=== PATIENT | female | born 2000 | race Caucasian/White ===

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

== ENCOUNTER 2018-12-19 13:47 | Emergency (ER) | payer BC, OTHER ==
--- NOTE | 2018-12-19 14:39 | ED ---
Lower Extremity Injury HPI - General Chief Complaint: Extremity Injury, Lower Stated Complaint: Knee & ankle injury Time Seen by Provider: 12/19/18 14:12 Source: patient, family Mode of arrival: wheelchair Limitations: no limitations - History of Present Illness Initial Comments: Patient is a 18-year-old female complaining of knee and foot pain after falling yesterday. Patient states she was walking out of work and her left knee gave out and she fell forward onto her left knee and twisting her right ankle. Patient admits to previous injury of same knee and ankle about a year and a half ago after slipping on some ice. Patient had a walking boot from her previous injury and was wearing that on her right lower extremity upon examination. Patient denies numbness and tingling. Patient denies any other injuries at this time. - Related Data Home Medications Medication Instructions Recorded Confirmed Lo Loestrin Fe 07/24 1 tab PO DAILY 09/25/17 09/25/17 Allergies Allergy/AdvReac Type Severity Reaction Status Date / Time latex AdvReac Unknown Verified 12/19/18 14:04 Review of Systems ROS Statement: Those systems with pertinent positive or pertinent negative responses have been documented in the HPI. ROS Other: All systems not noted in ROS Statement are negative. Past Medical History Past Medical History: No Reported History Additional Past Medical History / Comment(s): RSV History of Any Multi-Drug Resistant Organisms: None Reported Past Surgical History: No Surgical Hx Reported Past Psychological History: ADD/ADHD Smoking Status: Never smoker Past Alcohol Use History: None Reported Past Drug Use History: None Reported General Exam - General Exam Comments Initial Comments: GENERAL: Well-appearing, well-nourished and in no acute distress. HEAD: Atraumatic, normocephalic. EYES: Pupils equal round and reactive to light, extraocular movements intact, sclera anicteric, conjunctiva are normal. ENT: TMs normal, nares patent, oropharynx clear without exudates. Moist mucous membranes. NECK: Normal range of motion, supple without lymphadenopathy or JVD. LUNGS: Breath sounds clear to auscultation bilaterally and equal. No wheezes rales or rhonchi. HEART: Regular rate and rhythm without murmurs, rubs or gallops. ABDOMEN: Soft, nontender, normoactive bowel sounds. No guarding, no rebound. No masses appreciated. : Deferred EXTREMITIES: Left knee is tender to the touch over anterior aspect and over tibial tuberosity. There are 2 abrasions over the left anterior knee as well. Patient is able to lift left knee off the table and has full extension. Patient has pain with flexion and unable to flex past 30. Right foot has edema over the lateral aspect near the base of the fifth metatarsal. There is some bruising along the area as well and panic pain with palpitation. Ankle has normal range of motion although painful. Pulses are normal and intact. NEUROLOGICAL: Cranial nerves II through XII grossly intact. Normal speech, normal gait. PSYCH: Normal mood, normal affect. SKIN: Warm, Dry, normal turgor, no rashes or lesions noted. Limitations: no limitations Course Vital Signs 12/19/18 14:00 Temperature 98.6 F Pulse Rate 87 Respiratory 18 Rate Blood Pressure 138/83 O2 Sat by Pulse 96 Oximetry Medical Decision Making - Medical Decision Making Patient is a 18-year-old female who presents with left knee and right ankle foot pain after falling yesterday leaving work. She states her left knee gave out causing her to fall. Admits to previous injury to same left knee and right ankle approximately a year and a half ago. Left knee x-ray shows no acute fractures or joint effusions. Does show movement of the calcification within the patellar tendon that was on previous exam in 2018. Right foot x-ray shows no acute fractures/pathology. Patient will be discharged home. Disposition Clinical Impression: Contusion of knee, Contusion of foot Disposition: HOME SELF-CARE Condition: Stable Instructions (If sedation given, give patient instructions): Foot Contusion (ED), Knee Pain (ED) Additional Instructions: Please return to the Emergency Department if symptoms worsen or any other concerns. Follow-up with orthopedics/PCP if pain continues after 2 weeks. Is patient prescribed a controlled substance at d/c from ED?: No Referrals: None,Stated [Primary Care Provider] - 1-2 days
--- NOTE | 2018-12-19 15:04 | XR ---
Left knee HISTORY: Pain 3 views of the left knee, comparison to prior exam 07/17/2017 Bone mineralization and alignment are maintained. Joint spaces are stable. There is no evident joint effusion. There is some superior migration of the ossific density seen previously near the insertion of the patellar tendon. IMPRESSION: Interval migration of calcification within the patellar tendon could be due to underlying tendinopathy, consider knee MRI.
--- NOTE | 2018-12-19 15:04 | XR ---
Right foot HISTORY: Pain 3 views of the right foot Bone mineralization, joint spaces and alignment are maintained. No fracture or dislocation. IMPRESSION: Normal right foot.
[2018-12-19 15:48] VITALS: BP 130/78; PULSE 82; RESP 16; TEMP 98.1
== END 2018-12-19 15:47 | disposition home or self-care (01) ==
LOC: EC 13:47
DX: S80.02XA Contusion of left knee, initial encounter (principal); S90.31XA Contusion of right foot, initial encounter; Z79.3 Long term (current) use of hormonal contraceptives; Z91.040 Latex allergy status; W19.XXXA Unspecified fall, initial encounter; Y93.01 Activity, walking, marching and hiking; X50.1XXA Overexertion from prolonged static or awkward postures, initial encounter
CPT/HCPCS: 99283

== ENCOUNTER 2019-12-30 14:36 | Emergency (ER) | payer BC, OTHER ==
[2019-12-30] MEDS ORDERED: SODIUM CHLORIDE 0.9% 1,000 ML IV STA (15:01)
[2019-12-30] MEDS ORDERED: PANTOPRAZOLE 40 MG/10 ML VIAL IVP STA (15:02)
--- NOTE | 2019-12-30 15:03 | ED ---
General Adult HPI - General Chief complaint: Chest Pain Stated complaint: Chest Pain Time Seen by Provider: 12/30/19 14:45 Source: patient, RN notes reviewed, old records reviewed Mode of arrival: ambulatory Limitations: no limitations - History of Present Illness Initial comments: 19 [place] old female presents today for chest pain with taking a deep breath, around sternum. She reports symptoms started at work today. She has a history of GERD induced asthma. She denies cough, fever or chills. Denies history of sick contacts. PAtient denies nausea or vomiting. - Related Data Previous Rx's Medication Instructions Recorded Albuterol Inhaler [Ventolin Hfa 1 puff INHALATION RT-QID #1 puff 12/30/19 Inhaler] methylPREDNISolone Dose Pack 4 mg PO DIRECTED #21 package 12/30/19 [Medrol Dose Pack] Allergies Allergy/AdvReac Type Severity Reaction Status Date / Time latex AdvReac Unknown Verified 12/30/19 16:30 Review of Systems ROS Statement: Those systems with pertinent positive or pertinent negative responses have been documented in the HPI. ROS Other: All systems not noted in ROS Statement are negative. Past Medical History Past Medical History: No Reported History Additional Past Medical History / Comment(s): RSV History of Any Multi-Drug Resistant Organisms: None Reported Past Surgical History: No Surgical Hx Reported Past Psychological History: ADD/ADHD Smoking Status: Never smoker Past Alcohol Use History: None Reported Past Drug Use History: None Reported General Exam - General Exam Comments Initial Comments: 19 year old female, no distress. Limitations: no limitations General appearance: alert, in no apparent distress Head exam: Present: atraumatic, normocephalic, normal inspection Eye exam: Present: normal appearance, PERRL, EOMI. Absent: scleral icterus, conjunctival injection, periorbital swelling ENT exam: Present: normal exam, mucous membranes moist Neck exam: Present: normal inspection. Absent: tenderness, meningismus, l ymphadenopathy Respiratory exam: Present: normal lung sounds bilaterally. Absent: respiratory distress, wheezes, rales, rhonchi, stridor Cardiovascular Exam: Present: regular rate, normal rhythm, normal heart sounds. Absent: systolic murmur, diastolic murmur, rubs, gallop, clicks GI/Abdominal exam: Present: soft, normal bowel sounds. Absent: distended, tenderness, guarding, rebound, rigid Extremities exam: Present: normal inspection, full ROM, normal capillary refill. Absent: tenderness, pedal edema, joint swelling, calf tenderness Back exam: Present: normal inspection Neurological exam: Present: alert, oriented X3, CN II-XII intact Psychiatric exam: Present: normal affect, normal mood Skin exam: Present: warm, dry, intact, normal color. Absent: rash Course Vital Signs 12/30/19 12/30/19 12/30/19 14:40 15:06 15:44 Temperature 98.0 F 98.2 F Pulse Rate 111 H 102 H Respiratory 20 17 18 Rate Blood Pressure 154/97 132/88 O2 Sat by Pulse 98 97 Oximetry 12/30/19 12/30/19 12/30/19 16:06 16:18 16:53 Temperature 98.6 F Pulse Rate 84 88 87 Respiratory 20 Rate Blood Pressure 122/60 O2 Sat by Pulse 98 Oximetry Medical Decision Making - Medical Decision Making 19 year old female with 1 day of shortness of breath and chest pain with inspiration. Labs including D dimer are negative. EKG shows no acute changes, and CXR shows mild cardiomegaly but no acute process. Cardiomegaly is likley due to patient body habitus. PAtient vitals are stable. She does report midl improvement after albuterol. Discussed patient to follow up with PCP but to use inhaler at work. Discussed return parameters. - Lab Data Result diagrams: 12/30/19 15:25 12/30/19 15:25 Lab Results 12/30/19 12/30/19 12/30/19 Range/Units 15:13 15:25 15:25 WBC 9.7 (3.8-10.6) k/uL RBC 4.17 (3.80-5.40) m/uL Hgb 12.3 (11.4-16.0) gm/dL Hct 36.8 (34.0-46.0) % MCV 88.2 (80.0-100.0) fL MCH 29.5 (25.0-35.0) pg MCHC 33.5 (31.0-37.0) g/dL RDW 13.4 (11.5-15.5) % Plt Count 365 (150-450) k/uL Neutrophils % 67 % Lymphocytes % 26 % Monocytes % 4 % Eosinophils % 2 % Basophils % 0 % Neutrophils # 6.5 (1.3-7.7) k/uL Lymphocytes # 2.5 (1.0-4.8) k/uL Monocytes # 0.4 (0-1.0) k/uL Eosinophils # 0.2 (0-0.7) k/uL Basophils # 0.0 (0-0.2) k/uL PT 9.7 (9.0-12.0) sec INR 0.9 (<1.2) APTT 25.0 (22.0-30.0) sec D-Dimer <0.17 (<0.60) mg/L FEU Sodium (137-145) mmol/L Potassium (3.5-5.1) mmol/L Chloride (98-107) mmol/L Carbon Dioxide (22-30) mmol/L Anion Gap mmol/L BUN (7-17) mg/dL Creatinine (0.52-1.04) mg/dL Est GFR (CKD-EPI)AfAm (>60 ml/min/1.73 sqM) Est GFR (CKD-EPI)NonAf (>60 ml/min/1.73 sqM) Glucose (74-99) mg/dL Calcium (8.4-10.2) mg/dL Magnesium (1.6-2.3) mg/dL Total Bilirubin (0.2-1.3) mg/dL AST (14-36) U/L ALT (4-34) U/L Alkaline Phosphatase (38-126) U/L Troponin I (0.000-0.034) ng/mL Total Protein (6.3-8.2) g/dL Albumin (3.5-5.0) g/dL Urine Color Urine Appearance (Clear) Urine pH (5.0-8.0) Ur Specific [place] (1.001-1.035) Urine Protein (Negative) Urine Glucose (UA) (Negative) Urine Ketones (Negative) Urine Blood (Negative) Urine Nitrite (Negative) Urine Bilirubin (Negative) Urine Urobilinogen (<2.0) mg/dL Ur Leukocyte Esterase (Negative) Urine RBC (0-5) /hpf Urine WBC (0-5) /hpf Ur Squamous Epith Cells (0-4) /hpf Urine Mucus (None) /hpf Urine HCG, Qual (Not Detectd) Coronavirus (PCR) Not Detected (Not Detected) 06/17/20 06/17/20 06/17/20 Range/Units 15:25 15:25 16:05 WBC (3.8-10.6) k/uL RBC (3.80-5.40) m/uL Hgb (11.4-16.0) gm/dL Hct (34.0-46.0) % MCV (80.0-100.0) fL MCH (25.0-35.0) pg MCHC (31.0-37.0) g/dL RDW (11.5-15.5) % Plt Count (150-450) k/uL Neutrophils % % Lymphocytes % % Monocytes % % Eosinophils % % Basophils % % Neutrophils # (1.3-7.7) k/uL Lymphocytes # (1.0-4.8) k/uL Monocytes # (0-1.0) k/uL Eosinophils # (0-0.7) k/uL Basophils # (0-0.2) k/uL PT (9.0-12.0) sec INR (<1.2) APTT (22.0-30.0) sec D-Dimer (<0.60) mg/L FEU Sodium 137 (137-145) mmol/L Potassium 4.1 (3.5-5.1) mmol/L Chloride 107 (98-107) mmol/L Carbon Dioxide 22 (22-30) mmol/L Anion Gap 8 mmol/L BUN 9 (7-17) mg/dL Creatinine 0.48 L (0.52-1.04) mg/dL Est GFR (CKD-EPI)AfAm >90 (>60 ml/min/1.73 sqM) Est GFR (CKD-EPI)NonAf >90 (>60 ml/min/1.73 sqM) Glucose 145 H (74-99) mg/dL Calcium 9.3 (8.4-10.2) mg/dL Magnesium 2.0 (1.6-2.3) mg/dL Total Bilirubin 0.4 (0.2-1.3) mg/dL AST 23 (14-36) U/L ALT 14 (4-34) U/L Alkaline Phosphatase 80 (38-126) U/L Troponin I <0.012 (0.000-0.034) ng/mL Total Protein 7.0 (6.3-8.2) g/dL Albumin 4.0 (3.5-5.0) g/dL Urine Color Yellow Urine Appearance Cloudy H (Clear) Urine pH 6.0 (5.0-8.0) Ur Specific [place] 1.032 (1.001-1.035) Urine Protein Trace H (Negative) Urine Glucose (UA) Negative (Negative) Urine Ketones Trace H (Negative) Urine Blood Negative (Negative) Urine Nitrite Negative (Negative) Urine Bilirubin Negative (Negative) Urine Urobilinogen 2.0 (<2.0) mg/dL Ur Leukocyte Esterase Negative (Negative) Urine RBC 1 (0-5) /hpf Urine WBC 1 (0-5) /hpf Ur Squamous Epith Cells 6 H (0-4) /hpf Urine Mucus Many H (None) /hpf Urine HCG, Qual (Not Detectd) Coronavirus (PCR) (Not Detected) 12/30/19 Range/Units 16:05 WBC (3.8-10.6) k/uL RBC (3.80-5.40) m/uL Hgb (11.4-16.0) gm/dL Hct (34.0-46.0) % MCV (80.0-100.0) fL MCH (25.0-35.0) pg MCHC (31.0-37.0) g/dL RDW (11.5-15.5) % Plt Count (150-450) k/uL Neutrophils % % Lymphocytes % % Monocytes % % Eosinophils % % Basophils % % Neutrophils # (1.3-7.7) k/uL Lymphocytes # (1.0-4.8) k/uL Monocytes # (0-1.0) k/uL Eosinophils # (0-0.7) k/uL Basophils # (0-0.2) k/uL PT (9.0-12.0) sec INR (<1.2) APTT (22.0-30.0) sec D-Dimer (<0.60) mg/L FEU Sodium (137-145) mmol/L Potassium (3.5-5.1) mmol/L Chloride (98-107) mmol/L Carbon Dioxide (22-30) mmol/L Anion Gap mmol/L BUN (7-17) mg/dL Creatinine (0.52-1.04) mg/dL Est GFR (CKD-EPI)AfAm (>60 ml/min/1.73 sqM) Est GFR (CKD-EPI)NonAf (>60 ml/min/1.73 sqM) Glucose (74-99) mg/dL Calcium (8.4-10.2) mg/dL Magnesium (1.6-2.3) mg/dL Total Bilirubin (0.2-1.3) mg/dL AST (14-36) U/L ALT (4-34) U/L Alkaline Phosphatase (38-126) U/L Troponin I (0.000-0.034) ng/mL Total Protein (6.3-8.2) g/dL Albumin (3.5-5.0) g/dL Urine Color Urine Appearance (Clear) Urine pH (5.0-8.0) Ur Specific [place] (1.001-1.035) Urine Protein (Negative) Urine Glucose (UA) (Negative) Urine Ketones (Negative) Urine Blood (Negative) Urine Nitrite (Negative) Urine Bilirubin (Negative) Urine Urobilinogen (<2.0) mg/dL Ur Leukocyte Esterase (Negative) Urine RBC (0-5) /hpf Urine WBC (0-5) /hpf Ur Squamous Epith Cells (0-4) /hpf Urine Mucus (None) /hpf Urine HCG, Qual Not Detected (Not Detectd) Coronavirus (PCR) (Not Detected) 12/30/19 15:19 EKG performed at 1503 shows normal sinus rhythm possible left atrial margin. Borderline EKG. Ventricular rate of 99 bpm. Intervals 144 ms. QRS duration is 82 ms. QT QTc is 334/428 ms. - Radiology Data Radiology results: report reviewed CXR shows mild cardiomegaly, no acute cardiopulmonary process identified. Disposition Clinical Impression: Chest pain, atypical Disposition: HOME SELF-CARE Condition: Good Instructions (If sedation given, give patient instructions): Costochondritis (ED) Additional Instructions: ` Follow-up with primary care provider. Return to the emergency department if any alarming signs or symptoms occur. Prescriptions: methylPREDNISolone Dose Pack [Medrol Dose Pack] 4 mg PO DIRECTED #21 package Albuterol Inhaler [Ventolin Hfa Inhaler] 1 puff INHALATION RT-QID #1 puff Is patient prescribed a controlled substance at d/c from ED?: No Referrals: None,Stated [Primary Care Provider] - 1-2 days Willis Galarza MD [REFERRING] - 1-2 days Time of Disposition: 17:20
[2019-12-30] MEDS ORDERED: ALBUTEROL NEBULIZED 2.5 MG/3 ML INHALATION STA (15:19)
[2019-12-30 15:44] LABS: Basophils % (A) 0 %; Eosinophils # (A) 0.2 k/uL (0-0.7); Eosinophils % (A) 2 %; HCT 36.8 % (34.0-46.0); HGB 12.3 gm/dL (11.4-16.0); Lymphocytes # (A) 2.5 k/uL (1.0-4.8); Lymphocytes % (A) 26 %; MCH 29.5 pg (25.0-35.0); MCHC 33.5 g/dL (31.0-37.0); MCV 88.2 fL (80.0-100.0); Mean Platelet Volume 7.2; Monocytes # (A) 0.4 k/uL (0-1.0); Monocytes % (A) 4 %; Neutrophils # (A) 6.5 k/uL (1.3-7.7); Neutrophils % (A) 67 %; Platelet Count 365 k/uL (150-450); RBC 4.17 m/uL (3.80-5.40); RDW 13.4 % (11.5-15.5); WBC 9.7 k/uL (3.8-10.6)
[2019-12-30 15:49] LABS: ALT 14 U/L (4-34); AST 23 U/L (14-36); African American GFR (CKD) >90 (>60 ml/min/1.73 sqM); Alkaline Phosphatase 80 U/L (38-126); Anion Gap 8 mmol/L; Blood Urea Nitrogen 9 mg/dL (7-17); Calcium 9.3 mg/dL (8.4-10.2); Carbon Dioxide 22 mmol/L (22-30); Chloride 107 mmol/L (98-107); Glucose 145 mg/dL (74-99); Non-African American GFR(CKD) >90 (>60 ml/min/1.73 sqM); Potassium 4.1 mmol/L (3.5-5.1); Sodium 137 mmol/L (137-145); Total Bilirubin 0.4 mg/dL (0.2-1.3)
[2019-12-30 15:55] LABS: D-Dimer <0.17 mg/L FEU (<0.60); INR 0.9 (<1.2); Prothrombin Time 9.7 sec (9.0-12.0)
[2019-12-30 16:35] LABS: Appearance,Urine Cloudy (Clear); Bilirubin,Urine Negative (Negative); Blood,Urine Negative (Negative); Color,Urine Yellow; Glucose,Urine (UA) Negative (Negative); Ketones,Urine Trace (Negative); Leukocyte Esterase,Urine Negative (Negative); Mucus,Urine Many /hpf; Nitrite,Urine Negative (Negative); Protein,Urine Trace (Negative); RBC,Urine 1 /hpf (0-5); Specific Gravity,Urine 1.032 (1.001-1.035); Squamous Epithelial Cell,Urine 6 /hpf (0-4); WBC,Urine 1 /hpf (0-5)
--- NOTE | 2019-12-30 16:44 | XR ---
EXAMINATION TYPE: XR chest 2V DATE OF EXAM: 12/30/2019 COMPARISON: Chest x-ray September 25, 2017 HISTORY: Chest pain and tightness. TECHNIQUE: Frontal and lateral views of the chest are obtained. FINDINGS: Exam noted suboptimal secondary to patient's large body habitus especially lateral view. T here is no focal air space opacity, pleural effusion, or pneumothorax seen. The cardiac silhouette s ize is stable and mildly enlarged. The osseous structures are intact. IMPRESSION: Mild cardiomegaly without acute pulmonary process. No significant change from prior.
[2019-12-30 16:55] VITALS: BP 122/60; PULSE 87; RESP 20; TEMP 98.6
== END 2019-12-30 17:30 | disposition home or self-care (01) ==
LOC: EC 14:36
DX: Z03.818 Encounter for observation for suspected exposure to other biological agents ruled out (principal); R07.89 Other chest pain; Z91.040 Latex allergy status
CPT/HCPCS: 99285; 96374; 96361; 36415; 94640; 93005; 85379; 80053; 83735; 84484; 85025; 85610; 85730; 81001; 81025; 71046; U0003; C9113

== ENCOUNTER 2020-07-15 11:22 | Emergency (ER) | payer BC, OTHER ==
[2020-07-15 11:27] VITALS: BP 112/66; PULSE 83; RESP 18; TEMP 98.8
[2020-07-15] MEDS ORDERED: KETOROLAC 15 MG/ML 1 ML VIAL IM STA (12:01)
[2020-07-15 12:24] LABS: Appearance,Urine Cloudy (Clear); Bilirubin,Urine Negative (Negative); Blood,Urine Negative (Negative); Color,Urine Yellow; Glucose,Urine (UA) Negative (Negative); Ketones,Urine Negative (Negative); Leukocyte Esterase,Urine Negative (Negative); Mucus,Urine Many /hpf; Nitrite,Urine Negative (Negative); PH, Urine 6.5 (5.0-8.0); Protein,Urine Negative (Negative); RBC,Urine 1 /hpf (0-5); Specific Gravity,Urine 1.025 (1.001-1.035); Squamous Epithelial Cell,Urine 13 /hpf (0-4); Urobilinogen,Urine <2.0 mg/dL (<2.0); WBC,Urine 4 /hpf (0-5)
--- NOTE | 2020-07-15 12:36 | XR ---
EXAMINATION TYPE: XR lumbar spine 2 or 3V DATE OF EXAM: 07/15/2020 COMPARISON: None HISTORY: Pain right side TECHNIQUE: Three-view lumbar spine FINDINGS: 5 lumbar-type vertebral bodies. Pedicles are intact. Disc heights are preserved. Vertebral body heights are preserved. Alignment is normal. IMPRESSION: 1. Normal three-view lumbar spine
--- NOTE | 2020-07-15 12:37 | XR ---
EXAMINATION TYPE: XR KUB DATE OF EXAM: 07/15/2020 COMPARISON: 05/07/2016 INDICATION: Constipation right side TECHNIQUE: Single view abdomen upright view FINDINGS: There is a normal bowel gas pattern. Minimal fecal debris is noted in the colon. Psoas margins are normal. No organomegaly is present. No free air is evident. No differential air-fluid levels are evident. No suspicious calcifications. IMPRESSION: 1. Unremarkable Abdomen
--- NOTE | 2020-07-15 13:10 | ED ---
Back Pain HPI - General Chief Complaint: Back Pain/Injury Stated Complaint: Lower back pain Time Seen by Provider: 07/15/20 11:25 Source: patient Limitations: no limitations - History of Present Illness Initial Comments: Patient is a 19-year-old female presents emergency room with reported right flank pain. Patient states she's had the pain for the past week. It is reproducible in nature with movement and is better with rest. She is not taking any medications for her pain. She denies any associated urinary complaints to include dysuria, hematuria or difficulty voiding. She has diarrhea, melenic stools or hematochezia. Does admit to constipation. No history of kidney stones. No concern for . Denies any fevers or chills. No nausea or vomiting. Denies any midline back pain. No known trauma. No other alleviating, precipitating or modifying factors - Related Data Home Medications Medication Instructions Recorded Confirmed Acetaminophen/Pamabrom [Midol 2 tab PO Q12H PRN 07/15/20 07/15/20 [place]] Previous Rx's Medication Instructions Recorded Ibuprofen 400 mg PO Q8H #20 tab 07/15/20 Polyethylene Glycol 3350 [Miralax] 17 gm PO DAILY PRN #527 gm 07/15/20 Allergies Allergy/AdvReac Type Severity Reaction Status Date / Time latex AdvReac Unknown Verified 07/15/20 12:04 Review of Systems ROS Statement: Those systems with pertinent positive or pertinent negative responses have been documented in the HPI. ROS Other: All systems not noted in ROS Statement are negative. Past Medical History Past Medical History: No Reported History Additional Past Medical History / Comment(s): constipation History of Any Multi-Drug Resistant Organisms: None Reported Past Surgical History: No Surgical Hx Reported Past Psychological History: ADD/ADHD Smoking Status: Never smoker Past Alcohol Use History: None Reported Past Drug Use History: Marijuana General Exam Limitations: no limitations General appearance: alert, in no apparent distress Head exam: Present: atraumatic, normocephalic, normal inspection Respiratory exam: Present: normal lung sounds bilaterally. Absent: respiratory distress, wheezes, rales, rhonchi, stridor Cardiovascular Exam: Present: regular rate, normal rhythm, normal heart sounds. Absent: systolic murmur, diastolic murmur, rubs, gallop, clicks GI/Abdominal exam: Present: soft, normal bowel sounds. Absent: distended, tenderness, guarding, rebound, rigid Extremities exam: Present: normal inspection, full ROM, normal capillary refill. Absent: tenderness, pedal edema, joint swelling, calf tenderness Back exam: Present: paraspinal tenderness (on the right. ) Neurological exam: Present: alert, oriented X3, CN II-XII intact Psychiatric exam: Present: normal affect, normal mood Skin exam: Present: warm, dry, intact, normal color. Absent: rash Course Vital Signs 07/15/20 11:24 Temperature 98.8 F Pulse Rate 83 Respiratory 18 Rate Blood Pressure 112/66 O2 Sat by Pulse 98 Oximetry Medical Decision Making - Medical Decision Making The patient is placed in room 21. A thorough history and physical exam was performed. Patient is neurovascularly intact. She does provide a urine sample. Patient sent for an x-ray of her lumbar spine as well as a KUB. Patient does agree to imaging without a test that she reports no concern for . No vaginal bleeding or discharge. Patient is not sexually active. Imaging demonstrates mild stool burden. No acute fractures or acute intra- abdominal process. Patient was given a dose of Toradol. Repeat evaluation to menses the patient has improvement in her pain. Patient be discharged home with a prescription for Motrin and MiraLAX. She is to take the medications as directed. Follow up with her doctor in 3-4 days. She is requesting a work note. The patient is a new or worsening symptoms she should return to the emergency room. Patient discharged home in stable condition - Lab Data Lab Results 07/15/20 Range/Units 12:11 Urine Color Yellow Urine Appearance Cloudy H (Clear) Urine pH 6.5 (5.0-8.0) Ur Specific [place] 1.025 (1.001-1.035) Urine Protein Negative (Negative) Urine Glucose (UA) Negative (Negative) Urine Ketones Negative (Negative) Urine Blood Negative (Negative) Urine Nitrite Negative (Negative) Urine Bilirubin Negative (Negative) Urine Urobilinogen <2.0 (<2.0) mg/dL Ur Leukocyte Esterase Negative (Negative) Urine RBC 1 (0-5) /hpf Urine WBC 4 (0-5) /hpf Ur Squamous Epith Cells 13 H (0-4) /hpf Urine Mucus Many H (None) /hpf Disposition Clinical Impression: Flank pain Disposition: HOME SELF-CARE Condition: Stable Instructions (If sedation given, give patient instructions): Flank Pain (ED) Additional Instructions: Please follow-up with your primary care doctor in 2-4 days. Return to the emergency room for any new or worsening symptoms Prescriptions: Ibuprofen 400 mg PO Q8H #20 tab Polyethylene Glycol 3350 [Miralax] 17 gm PO DAILY PRN #527 gm PRN Reason: Constipation Is patient prescribed a controlled substance at d/c from ED?: No Referrals: None,Stated [Primary Care Provider] - 1-2 days Time of Disposition: 13:10
== END 2020-07-15 13:17 | disposition home or self-care (01) ==
LOC: EC 11:22
DX: R10.9 Unspecified abdominal pain (principal); R19.7 Diarrhea, unspecified; Z91.040 Latex allergy status
CPT/HCPCS: 99283; 96372; 81001; 72100; 74018; J1885

== ENCOUNTER 2020-11-26 18:10 | Emergency (ER) | payer BC, OTHER ==
[2020-11-26] MEDS ORDERED: KETOROLAC 15 MG/ML 1 ML VIAL IM STA (19:31)
--- NOTE | 2020-11-26 20:13 | XR ---
EXAMINATION TYPE: XR chest 2V DATE OF EXAM: 11/26/2020 COMPARISON: 12/30/2019 HISTORY: Chest pain TECHNIQUE: FINDINGS: Heart and mediastinum are normal. Lungs are clear. Diaphragm is normal. Bony thorax appears normal. IMPRESSION: Normal chest. No change.
--- NOTE | 2020-11-26 20:52 | ED ---
General Adult HPI - General Chief complaint: Recheck/Abnormal Lab/Rx Stated complaint: Covid vaccine reaction, chest pain Time Seen by Provider: 11/26/20 18:50 Source: patient, family Mode of arrival: ambulatory Limitations: no limitations - History of Present Illness Initial comments: 20 year-old female patient presents to the emergency department with multiple complaints. States that she has body aches, low grade fever, and fatigue. Also reporting sharp chest pain, right arm pain, and right leg pain. She did receive the second dose of her COVID vaccine yesterday. States she has been really tired and sleeping a lot. Reports nausea, no vomiting. No diarrhea. Denies any lip, tongue, or throat swelling. No rash. Allergy only to latex. She denies any shortness of breath, cough, or hemoptysis. Has been taking tylenol and motrin. Patient denies any recent abdominal pain, constipation, back pain, numbness, tingling, dizziness, weakness, hematuria, dysuria, urinary urgency, urinary frequency, headache, visual changes, or any other complaints. - Related Data Home Medications Medication Instructions Recorded Confirmed Etonogestrel/Ethinyl Estradiol 1 ring VG Q28H 11/26/20 11/26/20 [Nuvaring Vaginal Ring] Allergies Allergy/AdvReac Type Severity Reaction Status Date / Time latex AdvReac Unknown Verified 11/26/20 19:23 Review of Systems ROS Statement: Those systems with pertinent positive or pertinent negative responses have been documented in the HPI. ROS Other: All systems not noted in ROS Statement are negative. Past Medical History Past Medical History: No Reported History Additional Past Medical History / Comment(s): constipation History of Any Multi-Drug Resistant Organisms: None Reported Past Surgical History: No Surgical Hx Reported Past Psychological History: ADD/ADHD Smoking Status: Vaper Past Alcohol Use History: None Reported Past Drug Use History: Marijuana General Exam Limitations: no limitations General appearance: alert, in no apparent distress, other ENT exam: Present: normal exam, normal oropharynx, mucous membranes moist Respiratory exam: Present: normal lung sounds bilaterally. Absent: respiratory distress, wheezes, rales, rhonchi, stridor Cardiovascular Exam: Present: normal rhythm, tachycardia, normal heart sounds. Absent: systolic murmur, diastolic murmur, rubs, gallop, clicks GI/Abdominal exam: Present: soft, normal bowel sounds. Absent: distended, tenderness, guarding, rebound, rigid Neurological exam: Present: alert, oriented X3, CN II-XII intact Psychiatric exam: Present: normal affect, normal mood Skin exam: Present: warm, dry, intact, normal color. Absent: rash Course Vital Signs 11/26/20 11/26/20 18:12 21:09 Temperature 98.5 F 98.0 F Pulse Rate 101 H 86 Respiratory 20 18 Rate Blood Pressure 113/70 110/70 O2 Sat by Pulse 98 99 Oximetry EKG Findings - EKG Comments: EKG Findings:: EKG obtained in 1940 shows sinus rhythm with occasional PVCs. Ventricular is 88, P return of a 148, QRS duration 76, QT 340, QTC 411. No evidence of ST elevation or depression. Medical Decision Making - Medical Decision Making 20-year-old female patient presents to the emergency department today for evaluation of multiple complaints. She reported body aches, fever, chills, fatigue, chest pain, nausea. Physical examination is unremarkable. Lungs are clear to auscultation with good air movement. EKG was unremarkable. Chest x- ray is negative. I did discuss findings and results with her. We did discuss this is most likely reaction from the code vaccine, this plan pretty common symptoms with the second dosage. She will be discharged with instructions to continue Tylenol Motrin. Increase fluids. Rest. She is instructed to follow- up with her primary care physician for recheck in 1-2 days. Return parameters were discussed in detail. She verbalizes understanding and agrees with this plan. Case discussed with my attending Dr. Aviles. - Radiology Data Radiology results: report reviewed, image reviewed Two-view x-ray of the chest is obtained. Report was reviewed in its entirety. Impression by Dr. Oviedo shows normal chest. No change. Disposition Clinical Impression: Adverse reaction to COVID-19 vaccine Disposition: HOME SELF-CARE Condition: Good Instructions (If sedation given, give patient instructions): Chest Pain (ED) Additional Instructions: Follow-up with her primary care physician for recheck in 1-2 days. Return to the emergency department for any new, worsening, or concerning symptoms. Is patient prescribed a controlled substance at d/c from ED?: No Referrals: None,Stated [Primary Care Provider] - 1-2 days Time of Disposition: 20:57
[2020-11-26 21:11] VITALS: BP 110/70; PULSE 86; RESP 18; TEMP 98
== END 2020-11-26 21:11 | disposition home or self-care (01) ==
LOC: EC 18:10
DX: R07.9 Chest pain, unspecified (principal); M79.604 Pain in right leg; M79.601 Pain in right arm; R50.9 Fever, unspecified; R53.83 Other fatigue; R11.0 Nausea; T50.B95A Adverse effect of other viral vaccines, initial encounter; F90.9 Attention-deficit hyperactivity disorder, unspecified type; F17.290 Nicotine dependence, other tobacco product, uncomplicated; F12.90 Cannabis use, unspecified, uncomplicated
CPT/HCPCS: 93005; 71046; 99285; 96372; J1885

== ENCOUNTER 2021-03-16 12:03 | Emergency (ER) | payer BC, OTHER ==
[2021-03-16 12:14] VITALS: BP 133/95; PULSE 91; RESP 18; TEMP 99.5
[2021-03-16] MEDS ORDERED: ONDANSETRON 4 MG TAB PO STA (12:28)
[2021-03-16 12:58] LABS: Appearance,Urine Cloudy (Clear); Bacteria,Urine Rare /hpf; Bilirubin,Urine Negative (Negative); Blood,Urine Negative (Negative); Color,Urine Yellow; Glucose,Urine (UA) Negative (Negative); Hyaline Casts,Urine 1 /lpf (0-2); Ketones,Urine Negative (Negative); Leukocyte Esterase,Urine Trace (Negative); Mucus,Urine Few /hpf; Nitrite,Urine Negative (Negative); Protein,Urine Trace (Negative); RBC,Urine 2 /hpf (0-5); Specific Gravity,Urine 1.026 (1.001-1.035); Squamous Epithelial Cell,Urine 18 /hpf (0-4); Urobilinogen,Urine <2.0 mg/dL (<2.0); WBC,Urine 13 /hpf (0-5)
--- NOTE | 2021-03-16 13:13 | ED ---
Nausea/Vomiting/Diarrhea HPI - General Chief complaint: Nausea/Vomiting/Diarrhea Stated complaint: Nausea Time Seen by Provider: 03/16/21 12:19 Source: patient, RN notes reviewed Mode of arrival: ambulatory Limitations: no limitations - History of Present Illness Initial comments: Patient is a 20-year-old female that presented to the emergency room complaining of nausea. She notes she went to work this morning got sent home and needs a negative Covid test return to work. She notes that she's been nauseous on and off for the past several days. She notes that she has a 5 day bout of diarrhea approximately 2 weeks ago. She notes that she is otherwise feeling well. She was otherwise a well-appearing 20-year-old female in no apparent distress or pain. She denied any chest pains worse breath headache vomiting diarrhea constipation fever fatigue chills. - Related Data Home Medications Medication Instructions Recorded Confirmed Etonogestrel/Ethinyl Estradiol 1 ring VG Q28H 11/26/20 11/26/20 [Nuvaring Vaginal Ring] Previous Rx's Medication Instructions Recorded Cephalexin [Keflex] 500 mg PO Q6HR #40 cap 03/16/21 Allergies Allergy/AdvReac Type Severity Reaction Status Date / Time latex AdvReac Unknown Verified 03/16/21 12:14 Review of Systems ROS Statement: Those systems with pertinent positive or pertinent negative responses have been documented in the HPI. ROS Other: All systems not noted in ROS Statement are negative. Past Medical History Past Medical History: No Reported History Additional Past Medical History / Comment(s): constipation History of Any Multi-Drug Resistant Organisms: None Reported Past Surgical History: No Surgical Hx Reported Past Psychological History: ADD/ADHD Smoking Status: Vaper Past Alcohol Use History: None Reported Past Drug Use History: Marijuana General Exam Limitations: no limitations General appearance: alert, in no apparent distress, obese Head exam: Present: atraumatic, normocephalic, normal inspection Eye exam: Present: normal appearance, PERRL, EOMI. Absent: scleral icterus, conjunctival injection, periorbital swelling Neck exam: Present: normal inspection Respiratory exam: Present: normal lung sounds bilaterally. Absent: respiratory distress, wheezes, rales, rhonchi, stridor Cardiovascular Exam: Present: regular rate, normal rhythm, normal heart sounds. Absent: systolic murmur, diastolic murmur, rubs, gallop, clicks GI/Abdominal exam: Present: soft, normal bowel sounds. Absent: distended, tenderness, guarding, rebound, rigid Extremities exam: Present: normal inspection, full ROM, normal capillary refill. Absent: tenderness, pedal edema, joint swelling, calf tenderness Neurological exam: Present: alert, oriented X3 Psychiatric exam: Present: normal affect, normal mood Skin exam: Present: warm, dry, intact, normal color. Absent: rash Course Vital Signs 03/16/21 12:09 Temperature 99.5 F Pulse Rate 91 Respiratory 18 Rate Blood Pressure 133/95 O2 Sat by Pulse 96 Oximetry Medical Decision Making - Medical Decision Making 20-year-old female that is nauseous for the past several days, needing Covid test return back to work. Covid test, urinalysis, chest x-ray ordered. Urinalysis shows a mild UTIs. Covid test negative. Case discussed with Dr. Wolfe, patient can discharge home with follow-up to primary care. - Lab Data Lab Results 03/16/21 03/16/21 03/16/21 Range/Units 12:18 12:23 12:30 Urine Color Yellow Urine Appearance Cloudy H (Clear) Urine pH 7.0 (5.0-8.0) Ur Specific [place] 1.026 (1.001-1.035) Urine Protein Trace H (Negative) Urine Glucose (UA) Negative (Negative) Urine Ketones Negative (Negative) Urine Blood Negative (Negative) Urine Nitrite Negative (Negative) Urine Bilirubin Negative (Negative) Urine Urobilinogen <2.0 (<2.0) mg/dL Ur Leukocyte Esterase Trace H (Negative) Urine RBC 2 (0-5) /hpf Urine WBC 13 H (0-5) /hpf Ur Squamous Epith Cells 18 H (0-4) /hpf Urine Bacteria Rare H (None) /hpf Hyaline Casts 1 (0-2) /lpf Urine Mucus Few H (None) /hpf Urine HCG, Qual Not Detected (Not Detectd) Coronavirus (PCR) Not Detected (Not Detectd) - Radiology Data Radiology results: report reviewed, image reviewed Chest x-ray: No acute cardiopulmonary process. Disposition Clinical Impression: Nausea & vomiting, Urinary tract infection Disposition: HOME SELF-CARE Condition: Stable Instructions (If sedation given, give patient instructions): Acute Nausea and Vomiting (ED) Additional Instructions: Please return to the Emergency Department if symptoms worsen or any other concerns. Follow-up with primary care 1-2 days. Take antibiotics as prescribed. Is patient prescribed a controlled substance at d/c from ED?: No Referrals: None,Stated [Primary Care Provider] - 1-2 days Time of Disposition: 13:41
--- NOTE | 2021-03-16 13:30 | XR ---
EXAMINATION TYPE: XR chest 2V DATE OF EXAM: 03/16/2021 COMPARISON: Chest x-ray 11/26/2020 HISTORY: Cough, chest pain TECHNIQUE: Frontal and lateral views of the chest are obtained. FINDINGS: There is no focal air space opacity, pleural effusion, or pneumothorax seen. The cardiac silhouette size is within normal limits. The osseous structures are intact. IMPRESSION: No acute cardiopulmonary process.
[2021-03-16] MEDS ORDERED: PANTOPRAZOLE 40 MG TABLET PO STA (13:38)
== END 2021-03-16 14:11 | disposition home or self-care (01) ==
LOC: EC 12:03
DX: N39.0 Urinary tract infection, site not specified (principal); R11.2 Nausea with vomiting, unspecified; F17.290 Nicotine dependence, other tobacco product, uncomplicated; Z20.822 Contact with and (suspected) exposure to COVID-19; Z91.040 Latex allergy status
CPT/HCPCS: 71046; 81001; 81025; 87086; 87635; 99284

== ENCOUNTER 2021-07-29 15:06 | Emergency (ER) | payer BC, OTHER ==
[2021-07-29 15:24] VITALS: TEMP 98.2
[2021-07-29] MEDS ORDERED: BAMLANIVIMAB (EUA) 700 MG, ETESEVIMAB (EUA) 1,400 MG in SODIUM CHLORIDE 0.9% 100 ML IVPB ONE (18:00)
[2021-07-29] MEDS: SODIUM CHLORIDE 0.9% 50 ML IVPB ONE ×2 (18:10→19:21)
[2021-07-29 18:24] VITALS: BP 127/83; PULSE 92; RESP 18
--- NOTE | 2021-07-29 18:28 | ED ---
General Adult HPI - General Chief complaint: Recheck/Abnormal Lab/Rx Stated complaint: Sore throat,Cough Time Seen by Provider: 07/29/21 17:09 Source: patient Mode of arrival: ambulatory Limitations: no limitations - History of Present Illness Initial comments: 21-year-old female patient presents to the emergency department today for evaluation of upper respiratory symptoms. States starting on Saturday she has had nasal congestion, mild cough, and sore throat. States she is having some nausea today. Denies any vomiting or diarrhea. Denies any chest pain or shortness of breath. Denies any ear pain. Denies fever or chills. She did get some Mucinex and started taking that today. States she is also taking vitamin C and zinc. Denies any other medications. Denies chance of . Denies any significant medical problems. - Related Data Home Medications Medication Instructions Recorded Confirmed Etonogestrel/Ethinyl Estradiol 1 ring VG Q28H 11/26/20 11/26/20 [Nuvaring Vaginal Ring] Previous Rx's Medication Instructions Recorded Cephalexin [Keflex] 500 mg PO Q6HR #40 cap 03/16/21 Allergies Allergy/AdvReac Type Severity Reaction Status Date / Time latex AdvReac Unknown Verified 07/29/21 15:31 Review of Systems ROS Statement: Those systems with pertinent positive or pertinent negative responses have been documented in the HPI. ROS Other: All systems not noted in ROS Statement are negative. Past Medical History Past Medical History: No Reported History Additional Past Medical History / Comment(s): constipation History of Any Multi-Drug Resistant Organisms: None Reported Past Surgical History: No Surgical Hx Reported Past Psychological History: ADD/ADHD Smoking Status: Vaper Past Alcohol Use History: None Reported Past Drug Use History: Marijuana General Exam Limitations: no limitations General appearance: alert, in no apparent distress, other (This is a well-de veloped, well-nourished adult female in no acute distress.) ENT exam: Present: normal exam, normal oropharynx, mucous membranes moist Respiratory exam: Present: normal lung sounds bilaterally. Absent: respiratory distress, wheezes, rales, rhonchi, stridor Cardiovascular Exam: Present: regular rate, normal rhythm, normal heart sounds. Absent: systolic murmur, diastolic murmur, rubs, gallop, clicks GI/Abdominal exam: Present: soft, normal bowel sounds. Absent: distended, tenderness, guarding, rebound, rigid Neurological exam: Present: alert, oriented X3, CN II-XII intact Psychiatric exam: Present: normal affect, normal mood Skin exam: Present: warm, dry, intact, normal color. Absent: rash Course Vital Signs 07/29/21 07/29/21 07/29/21 15:19 17:42 18:00 Temperature 98.2 F Pulse Rate 89 92 Respiratory 16 15 18 Rate Blood Pressure 108/75 127/83 O2 Sat by Pulse 100 97 Oximetry Medical Decision Making - Medical Decision Making 21-year-old female patient presents to the emergency department today for evaluation of cough, congestion, nausea. She did test positive for COVID-19. She did meet criteria to receive monoclonal antibody infusion. She tolerated the infusion without difficulty. She is discharged follow up with the primary care physician for recheck in one to days. Return parameters were discussed in detail. She verbalizes understanding and agrees with this plan. My attending is Dr. Wolfe. - Lab Data Lab Results 07/29/21 Range/Units 15:35 Coronavirus (PCR) Detected A (Not Detectd) Disposition Clinical Impression: COVID-19 Disposition: HOME SELF-CARE Condition: Good Instructions (If sedation given, give patient instructions): Coronavirus Disease 2019 (COVID-19) Additional Instructions: Tips to help you feel better: -Maintain adequate fluid intake - especially water. -Rest, you are healing your body will require extra sleep. -Eat even if you do not feel like it - broth, jello, toast are fine if you cannot eat full meals. -Take tylenol and motrin alternating (if you have no allergies or have not been instructed to avoid these medications) to help with body aches and fevers. -Obtain over the counter vitamin C, zinc, and vitamin D3. -Take medications as prescribed. Follow-up with your primary care physician for recheck in 1-2 days. Return for any new, worsening, or concerning symptoms. Is patient prescribed a controlled substance at d/c from ED?: No Referrals: Cristina Fernandes MD [Primary Care Provider] - 1-2 days
== END 2021-07-29 20:51 | disposition home or self-care (01) ==
LOC: EC 15:06
DX: R05.9 Cough, unspecified (principal); U07.1 COVID-19; F17.290 Nicotine dependence, other tobacco product, uncomplicated; Z91.040 Latex allergy status
CPT/HCPCS: 99283; 87635; 96360; U0003; J3490

== ENCOUNTER 2022-02-17 18:04 | Emergency (ER) | payer BC, OTHER ==
[2022-02-17] MEDS ORDERED: SODIUM CHLORIDE 0.9% 1,000 ML IV STA (18:38)
[2022-02-17 19:48] LABS: Basophils % (A) 0 %; Eosinophils # (A) 0.2 k/uL (0-0.7); Eosinophils % (A) 2 %; HCT 37.2 % (34.0-46.0); HGB 12.1 gm/dL (11.4-16.0); Lymphocytes # (A) 2.2 k/uL (1.0-4.8); Lymphocytes % (A) 26 %; MCH 29.3 pg (25.0-35.0); MCHC 32.6 g/dL (31.0-37.0); MCV 89.9 fL (80.0-100.0); Mean Platelet Volume 7.1; Monocytes # (A) 0.4 k/uL (0-1.0); Monocytes % (A) 5 %; Neutrophils # (A) 5.6 k/uL (1.3-7.7); Neutrophils % (A) 64 %; Platelet Count 354 k/uL (150-450); RBC 4.14 m/uL (3.80-5.40); WBC 8.6 k/uL (3.8-10.6)
[2022-02-17 20:09] LABS: Appearance,Urine Clear (Clear); Bilirubin,Urine Negative (Negative); Blood,Urine Negative (Negative); Color,Urine Colorless; Glucose,Urine (UA) Negative (Negative); Ketones,Urine Negative (Negative); Leukocyte Esterase,Urine Negative (Negative); Nitrite,Urine Negative (Negative); PH, Urine 6.5 (5.0-8.0); Protein,Urine Negative (Negative); Specific Gravity,Urine 1.006 (1.001-1.035); Urobilinogen,Urine <2.0 mg/dL (<2.0)
--- NOTE | 2022-02-17 20:11 | US ---
EXAMINATION TYPE: Transabdominal DATE OF EXAM: 02/17/2022 8:07 PM COMPARISON: NONE CLINICAL HISTORY: vaginal bleeding 7 weeks. EXAM PERFORMED: Transabdominal (TA) EXAM MEASUREMENTS: GESTATIONAL AGE / DATING Physician Established: Not yet established Dates by LMP: ( 6 weeks/6 days) EDC: 10/07/2022 Dates by First Scan: No previous this is first scan Dates by Current Scan for: (6 weeks/6 days) EDC: 10/07/2022 MATERNAL ANATOMY Uterus: 10.5 x 6.7 x 4.5 cm Right Ovary: 3.1 x 2.0 x 1.9 cm Left Ovary: 2.8 x 1.7 x 1.5 cm Post CDS / Adnexa: no free fluid Presence of free fluid: no Presence of corpus luteal cyst: right ovary= 1.3 x 1.5 x 1.5 cm Presence of subchorionic bleed: no GESTATION / SURVEY CRL: 0.8 cm (6 weeks/6 days) MSD: seen, not measured Yolk Sac (normal less than 6mm): 2.8 mm Heart Rate: 121 bpm Rhythm: Normal IUP: Viable IUP Date of LMP: 12/31/2021, G1 Beta HcG (if available): Not available at this time IMPRESSION: The ultrasound gestational age is 6 weeks and 6 days. No complicating process seen.
[2022-02-17 20:24] LABS: ALT 12 U/L (4-34); AST 20 U/L (14-36); African American GFR (CKD) >90 (>60 ml/min/1.73 sqM); Albumin 3.9 g/dL (3.5-5.0); Alkaline Phosphatase 75 U/L (38-126); Anion Gap 4 mmol/L; Blood Urea Nitrogen 11 mg/dL (7-17); Calcium 9.1 mg/dL (8.4-10.2); Carbon Dioxide 28 mmol/L (22-30); Chloride 103 mmol/L (98-107); Glucose 95 mg/dL (74-99); Lipase 65 U/L (23-300); Non-African American GFR(CKD) >90 (>60 ml/min/1.73 sqM); Potassium 4.7 mmol/L (3.5-5.1); Sodium 135 mmol/L (137-145); Total Bilirubin 0.1 mg/dL (0.2-1.3); Total Protein 6.6 g/dL (6.3-8.2)
[2022-02-17 20:43] VITALS: RESP 16
[2022-02-17 21:14] LABS: HCG,Quantitative Serum 65560.6 mIU/mL
--- NOTE | 2022-02-17 21:41 | ED ---
Female Urogenital HPI - General Chief complaint: Vaginal Bleeding Stated complaint: Preg/Bleeding Time Seen by Provider: 02/17/22 18:32 Source: patient Mode of arrival: ambulatory Limitations: no limitations - History of Present Illness Initial comments: Patient is a 21-year-old A0 female at approximate 6-7 weeks who presents to the emergency department with chief complaint of vaginal bleeding. Patient states she went to wipe after urinating today and saw light pink blood on the toilet paper. Patient has not had any further bleeding. Patient reports lower abdominal cramping, mild in nature. She denies fever, chills, shortness of breath, chest pain, nausea, vomiting, and burning with urination. Patient does not have an OB yet. States she has had called [employer] and [employer] several times but has not been able to reach them. - Related Data Home Medications Medication Instructions Recorded Confirmed Cholecalciferol [Vitamin D3 (25 25 mcg PO DAILY 02/17/22 02/17/22 Mcg = 1000 Iu)] Vit No.179/Iron/Folic 2 tab PO DAILY 02/17/22 02/17/22 [ Tablet] Allergies Allergy/AdvReac Type Severity Reaction Status Date / Time latex AdvReac Unknown Verified 02/17/22 19:55 Review of Systems ROS Statement: Those systems with pertinent positive or pertinent negative responses have been documented in the HPI. ROS Other: All systems not noted in ROS Statement are negative. Past Medical History Past Medical History: No Reported History Additional Past Medical History / Comment(s): constipation History of Any Multi-Drug Resistant Organisms: None Reported Past Surgical History: No Surgical Hx Reported Past Psychological History: ADD/ADHD Smoking Status: Vaper Past Alcohol Use History: None Reported Past Drug Use History: None Reported, Marijuana General Exam Limitations: no limitations General appearance: alert, in no apparent distress Head exam: Present: atraumatic, normocephalic, normal inspection Eye exam: Present: normal appearance, PERRL, EOMI. Absent: scleral icterus, conjunctival injection, periorbital swelling Respiratory exam: Present: normal lung sounds bilaterally. Absent: respiratory distress, wheezes, rales, rhonchi, stridor Cardiovascular Exam: Present: regular rate, normal rhythm, normal heart sounds. Absent: systolic murmur, diastolic murmur, rubs, gallop, clicks GI/Abdominal exam: Present: soft, normal bowel sounds. Absent: distended, tenderness, guarding, rebound, rigid Psychiatric exam: Present: normal affect, normal mood Skin exam: Present: warm, dry, intact, normal color. Absent: rash Course Vital Signs 02/17/22 02/17/22 02/17/22 18:23 20:42 22:12 Temperature 98.3 F 98.2 F 98.0 F Pulse Rate 102 H 87 82 Respiratory 18 16 16 Rate Blood Pressure 121/84 132/81 119/70 O2 Sat by Pulse 97 99 100 Oximetry Medical Decision Making - Medical Decision Making This is a 21-year-old female at 6-7 weeks presenting with vaginal bleeding. Thorough history and examination were performed. Patient is well- appearing. Vital stable. Serum beta hCG is 65,560. Hemoglobin is normal. US shows a viable IUP with heart rate at 121. Results discussed with patient. Rhogam is not indicated. This is a threatened miscarriage. Patient will be discharged with instruction to follow-up with an head porter. I will refer her to Dr. Diaz. Patient advised to call first thing in the morning. Return parameters discussed. Patient verbalizes understanding and is agreeable to this plan. Dr. Wolfe is my attending. - Lab Data Result diagrams: 02/17/22 18:55 02/17/22 18:55 Lab Results 02/17/22 02/17/22 02/17/22 Range/Units 18:55 18:55 18:55 WBC 8.6 (3.8-10.6) k/uL RBC 4.14 (3.80-5.40) m/uL Hgb 12.1 (11.4-16.0) gm/dL Hct 37.2 (34.0-46.0) % MCV 89.9 (80.0-100.0) fL MCH 29.3 (25.0-35.0) pg MCHC 32.6 (31.0-37.0) g/dL RDW 14.0 (11.5-15.5) % Plt Count 354 (150-450) k/uL MPV 7.1 Neutrophils % 64 % Lymphocytes % 26 % Monocytes % 5 % Eosinophils % 2 % Basophils % 0 % Neutrophils # 5.6 (1.3-7.7) k/uL Lymphocytes # 2.2 (1.0-4.8) k/uL Monocytes # 0.4 (0-1.0) k/uL Eosinophils # 0.2 (0-0.7) k/uL Basophils # 0.0 (0-0.2) k/uL Sodium 135 L (137-145) mmol/L Potassium 4.7 (3.5-5.1) mmol/L Chloride 103 (98-107) mmol/L Carbon Dioxide 28 (22-30) mmol/L Anion Gap 4 mmol/L BUN 11 (7-17) mg/dL Creatinine 0.55 (0.52-1.04) mg/dL Est GFR (CKD-EPI)AfAm >90 (>60 ml/min/1.73 sqM) Est GFR (CKD-EPI)NonAf >90 (>60 ml/min/1.73 sqM) Glucose 95 (74-99) mg/dL Calcium 9.1 (8.4-10.2) mg/dL Total Bilirubin 0.1 L (0.2-1.3) mg/dL AST 20 (14-36) U/L ALT 12 (4-34) U/L Alkaline Phosphatase 75 (38-126) U/L Total Protein 6.6 (6.3-8.2) g/dL Albumin 3.9 (3.5-5.0) g/dL Lipase 65 (23-300) U/L HCG, Quant 26920.6 mIU/mL Urine Color Colorless Urine Appearance Clear (Clear) Urine pH 6.5 (5.0-8.0) Ur Specific [place] 1.006 (1.001-1.035) Urine Protein Negative (Negative) Urine Glucose (UA) Negative (Negative) Urine Ketones Negative (Negative) Urine Blood Negative (Negative) Urine Nitrite Negative (Negative) Urine Bilirubin Negative (Negative) Urine Urobilinogen <2.0 (<2.0) mg/dL Ur Leukocyte Esterase Negative (Negative) Blood Type Blood Type Confirm Blood Type Recheck Bld Type Recheck Status 02/17/22 02/17/22 Range/Units 18:55 19:00 WBC (3.8-10.6) k/uL RBC (3.80-5.40) m/uL Hgb (11.4-16.0) gm/dL Hct (34.0-46.0) % MCV (80.0-100.0) fL MCH (25.0-35.0) pg MCHC (31.0-37.0) g/dL RDW (11.5-15.5) % Plt Count (150-450) k/uL MPV Neutrophils % % Lymphocytes % % Monocytes % % Eosinophils % % Basophils % % Neutrophils # (1.3-7.7) k/uL Lymphocytes # (1.0-4.8) k/uL Monocytes # (0-1.0) k/uL Eosinophils # (0-0.7) k/uL Basophils # (0-0.2) k/uL Sodium (137-145) mmol/L Potassium (3.5-5.1) mmol/L Chloride (98-107) mmol/L Carbon Dioxide (22-30) mmol/L Anion Gap mmol/L BUN (7-17) mg/dL Creatinine (0.52-1.04) mg/dL Est GFR (CKD-EPI)AfAm (>60 ml/min/1.73 sqM) Est GFR (CKD-EPI)NonAf (>60 ml/min/1.73 sqM) Glucose (74-99) mg/dL Calcium (8.4-10.2) mg/dL Total Bilirubin (0.2-1.3) mg/dL AST (14-36) U/L ALT (4-34) U/L Alkaline Phosphatase (38-126) U/L Total Protein (6.3-8.2) g/dL Albumin (3.5-5.0) g/dL Lipase (23-300) U/L HCG, Quant mIU/mL Urine Color Urine Appearance (Clear) Urine pH (5.0-8.0) Ur Specific [place] (1.001-1.035) Urine Protein (Negative) Urine Glucose (UA) (Negative) Urine Ketones (Negative) Urine Blood (Negative) Urine Nitrite (Negative) Urine Bilirubin (Negative) Urine Urobilinogen (<2.0) mg/dL Ur Leukocyte Esterase (Negative) Blood Type O Positive Blood Type Confirm O Positive Blood Type Recheck No Previous Record Bld Type Recheck Status CABO Indicated Disposition Clinical Impression: Threatened Disposition: HOME SELF-CARE Condition: Good Instructions (If sedation given, give patient instructions): Threatened Miscarriage (ED) Additional Instructions: Please follow up with [facility] listed. Try calling in the morning when they first open. Return to the emergency department if you experience new, concerning, or worsening symptoms. Is patient prescribed a controlled substance at d/c from ED?: No Referrals: Cristina Fernandes MD [Primary Care Provider] - 1-2 days Julien Diaz MD [STAFF PHYSICIAN] - 1-2 days
[2022-02-17 22:14] VITALS: BP 119/70; PULSE 82; TEMP 98
== END 2022-02-17 22:14 | disposition home or self-care (01) ==
LOC: EC 18:04
DX: O20.0 Threatened abortion (principal); F17.209 Nicotine dependence, unspecified, with unspecified nicotine-induced disorders; Z91.040 Latex allergy status; Z3A.49 Greater than 42 weeks gestation of pregnancy
CPT/HCPCS: 36415; 76801; 80053; 81003; 83690; 84702; 85025; 86900; 86901; 96360; 96361; 99284

== ENCOUNTER → 2022-06-29 | Outpatient (CLI) | payer BC, OTHER ==
[2022-06-29 13:56] LABS: Glucose 3 Hour, Gest 78 mg/dL
== END | disposition home or self-care (01) ==
LOC: LABWHC1 09:33
PROVIDERS: ATTEND Obstetrics & Gynecology
DX: O99.810 Abnormal glucose complicating pregnancy (principal); Z3A.00 Weeks of gestation of pregnancy not specified
CPT/HCPCS: 36415; 82951; 82952

== ENCOUNTER 2022-09-20 11:33 | Inpatient (IN) | payer BC, OTHER ==
[2022-09-20] MEDS: LACTATED RINGERS 1,000 ML IV SCH ×3 (11:40→22:09)
[2022-09-20] MEDS ORDERED: ceFAZolin 1,000 MG VIAL ONE (11:50)
[2022-09-20] MEDS ORDERED: OXYTOCIN 30 UNITS/500 ML NS BAG IV ONE (11:50)
[2022-09-20] MEDS ORDERED: KETOROLAC 30 MG/ML 1 ML VIAL ONE (11:50)
[2022-09-20] MEDS ORDERED: SUCCINYLCHOLINE CHLORIDE 200 MG/10 ML VIAL IV ONE (11:50)
[2022-09-20] MEDS ORDERED: ONDANSETRON 4 MG/2 ML VIAL ONE (11:50)
[2022-09-20] MEDS ORDERED: SODIUM CHLORIDE 0.9% 100 ML BAG ONE (11:50)
[2022-09-20] MEDS ORDERED: HYDROmorphone (PF) 1 MG/ML ONE (11:50)
[2022-09-20] MEDS ORDERED: fentaNYL (PF) 50 MCG/ML 2 ML AMP ONE (11:50)
[2022-09-20] MEDS ORDERED: PROPOFOL 10 MG/ML 20 ML VIAL IV ONE (11:50)
[2022-09-20] MEDS ORDERED: CITRIC ACID-SODIUM CITRATE 15 ML CUP PO ONE (12:00)
[2022-09-20] MEDS ORDERED: ceFAZolin 3 GM in SODIUM CHLORIDE 0.9% 100 ML IVPB ONE (12:00)
[2022-09-20 12:01] LABS: Basophils % (A) 0 %; Eosinophils # (A) 0.1 k/uL (0-0.7); Eosinophils % (A) 1 %; HCT 35.7 % (34.0-46.0); HGB 11.6 gm/dL (11.4-16.0); Lymphocytes # (A) 2.2 k/uL (1.0-4.8); Lymphocytes % (A) 22 %; MCH 28.9 pg (25.0-35.0); MCHC 32.4 g/dL (31.0-37.0); MCV 89.3 fL (80.0-100.0); Mean Platelet Volume 7.8; Monocytes # (A) 0.6 k/uL (0-1.0); Monocytes % (A) 6 %; Neutrophils # (A) 6.8 k/uL (1.3-7.7); Neutrophils % (A) 68 %; Platelet Count 308 k/uL (150-450); RDW 14.5 % (11.5-15.5); WBC 10.1 k/uL (3.8-10.6)
[2022-09-20] MEDS ORDERED: diphenhydrAMINE 25 MG CAP PO PRN (12:29)
[2022-09-20] MEDS ORDERED: ZOLPIDEM 5 MG TAB PO PRN (12:29)
[2022-09-20] MEDS ORDERED: METOCLOPRAMIDE 5 MG/ML 2 ML VIAL IVP PRN (12:29)
[2022-09-20] MEDS ORDERED: LANOLIN CREAM 5 GM TUBE TOPICAL PRN (12:29)
[2022-09-20] MEDS ORDERED: ONDANSETRON 4 MG/2 ML VIAL IVP PRN (12:29)
[2022-09-20] MEDS ORDERED: NALOXONE 0.4 MG/ML 1 ML VIAL IV PRN (12:29)
[2022-09-20] MEDS ORDERED: diphenhydrAMINE 50 MG/ML 1 ML VIAL IVP PRN (12:29)
[2022-09-20] MEDS ORDERED: OXYTOCIN 30 UNITS/500 ML NS 30 UNIT in SALINE 1 500ML.BAG IV SCH (12:30)
--- NOTE | 2022-09-20 12:39 | P.HPOB ---
History of Present Illness H&P Date: 09/20/22 Chief Complaint: bradycardia, persistent Please note this H&P is dictated post . This patient is a 22-year-old 1 para 0 female estimated date of confinement 10/07/2022 estimated 37- 4/7 weeks who presented to the office today for a scheduled biophysical profile and nonstress test. Patient's care is per Dr. Teran appears to be complicated by insulin-dependent gestational diabetes with marginal or questionable control. Patient has been noted to have some heart arrhythmia over the last few nonstress tests and today presented for a bio physical profile and has sustained bradycardia in the 80s in the office. Patient was referred to [facility] by Dr. Teran but this point was not till next week. Patient was immediately sent to labor and delivery for monitoring and possible delivery if persistent bradycardia. Review of Systems Genitourinary: Reports Menstruation: Reports amenorrhea Past Medical History Past Medical History: No Reported History Additional Past Medical History / Comment(s): constipation. Gestational diabetes History of Any Multi-Drug Resistant Organisms: None Reported Past Surgical History: No Surgical Hx Reported Past Anesthesia/Blood Transfusion Reactions: No Reported Reaction Past Psychological History: Anxiety, Depression Smoking Status: Current every day smoker, Vaper Past Alcohol Use History: None Reported Past Drug Use History: None Reported Medications and Allergies Home Medications Medication Instructions Recorded Confirmed Type Vit No.179/Iron/Folic 2 tab PO DAILY 02/17/22 09/13/22 History [ Tablet] Loratadine [Claritin] 1 tablet DAILY 09/13/22 09/13/22 History Allergies Allergy/AdvReac Type Severity Reaction Status Date / Time latex AdvReac Unknown Verified 08/29/22 16:59 Exam Intake and Output 09/19/22 09/20/22 09/20/22 22:59 06:59 14:59 Other: Weight 159.211 kg - OBG Physical Exam Abdomen: bowel sounds normal, no diffuse tenderness, no bruit present, no guarding noted, no hepatomegaly, no splenomegaly, no mass Vulva: both: normal Vagina: normal moisture, no discharge Cervix: no lesion, no discharge Results Result Diagrams: 09/20/22 11:45 Assessment and Plan Assessment: This is a 22-year-old 1 para 0 female 37-4/7 weeks gestation with persistent bradycardia and category 2 heart tones. Patient's heart tones were persistent and I had a patient centered level with the patient and her partner in the decision and need for expedient delivery was discussed with the patient. It was my clinical impression to proceed with section and after the patient's questions were answered and we proceeded immediately with delivery. Anesthesia product marketing analyst alerted. Emergency section was performed for a viable female . See dictated operative note. (1) 37 or more weeks gestation of Current Visit: Yes Status: Acute Code(s): [id number] - SNOMED Code(s): 26871696 (2) bradycardia Current Visit: Yes Status: Acute Code(s): FOU1277 - SNOMED Code(s): 194446117
--- NOTE | 2022-09-20 12:45 | P.OP ---
Date of Procedure: 09/20/22 Preoperative Diagnosis: #1: 37-4/7 week intrauterine . #2: Persistent bradycardia/category 2 heart tones remote from delivery #3: Insulin dependent gestational diabetes poorly controlled Postoperative Diagnosis: Same Procedure(s) Performed: Emergent primary low transverse section Anesthesia: AVA Surgeon: Julien Diaz Candy Counter Clerk #1: Urmila Purdy Estimated Blood Loss (ml): 800 Pathology: other (Central) Condition: stable Disposition: floor Indications for Procedure: Please see dictated H&P on this patient's admission. Brief summary this is a pleasant 22-year-old 1 para 0 female 37-4/7 weeks gestation admitted from the office with persistent bradycardia in the 70s and 80s. Patient presented to labor and delivery and heart tones again were persistently in the 70s and 80s. Although this was felt to be a cardiac block, I cannot guarantee definitively the baby was not being compromised and therefore I recommended proceed with immediate delivery by section. Discussed this with the patient and her partner and they agreed to proceed. She did understand the risks and benefits and written consent was obtained. Operative Findings: This is a viable female Apgars 8 and 9 delivery time was 1156 hrs.. Grossly appears normal as persistent arrhythmias including bradycardia Description of Procedure: This patient is taken to the operating room. She previously had a Randall catheter placed to straight drain. She has abdominal prep and drape. After the appropriate timeout she undergoes rapid sequence endotracheal anesthesia. With adequate level of anesthesia scalpels taken Pfannenstiel skin incision is made. A second scalpel was made down to the fascia the fascia was scored with scalpel. Fascial incision extended bilaterally. The rectus muscles are the peritoneum was identified and entered sharply. Peritoneal incision extended. Bladder blade is placed. Scalpels taken and a low transverse uterine incision is made. Using a hemostat I enter the uterine cavity bluntly there is loss of clear fluid. Uterine incision is then extended bluntly and the 's head was guided through the incision with fundal pressure delivered. Mouth and nares are bulb suctioned. There is no evidence of nuchal cord. With more fundal pressure delivered rest this infant's body. This is a vigorous viable female Apgars are 8 and 9 delivery time is 1126 hrs. was immediately handed off to the program facilitator who is present for delivery. The placenta is then manually extracted intact. Uterus is then externalized uterine incision demarcated with Dwyer clamps. Uterine incision is closed using 0 Vicryl running locked fashion 2 layers. Excess fluid is removed from the abdomen and pelvis. Uterus placed back into the abdomen. Parietal peritoneum was then closed using 0 Vicryl running fashion. Rectus muscles are reapproximated using 0 Vicryl interrupted fashion. Fascial incision is then closed using 0 PDS. Fascial incision is intact. The subcutaneous tissues and closed using a 3-0 Vicryl. Skin is and closed using santi. All counts are correct 3. There are no complications. Patient is awakened from anesthesia and taken to her birthing suite in satisfactory condition.
[2022-09-20] MEDS ORDERED: HYDROmorphone PCA 10 MG/50 ML BAG IV PRN (13:00)
[2022-09-20] MEDS: ACETAMINOPHEN TAB 500 MG TAB PO SCH (14:52)
[2022-09-20] MEDS: KETOROLAC 15 MG/ML 1 ML VIAL IVP SCH ×2 (18:03→23:52)
[2022-09-20] MEDS: ceFAZolin 3 GM in SODIUM CHLORIDE 0.9% 100 ML IVPB SCH (22:16)
[2022-09-20] MEDS: SENNOSIDES-DOCUSATE SODIUM 1 EACH TAB PO SCH (23:46)
[2022-09-21] MEDS: IBUPROFEN 600 MG TAB PO SCH ×5 (00:47→23:48)
[2022-09-21] MEDS: SENNOSIDES-DOCUSATE SODIUM 1 EACH TAB PO SCH ×3 (00:59→19:34)
[2022-09-21] MEDS: ACETAMINOPHEN TAB 500 MG TAB PO SCH ×5 (05:15→23:54)
[2022-09-21] MEDS: LACTATED RINGERS 1,000 ML IV SCH ×2 (05:32→20:56)
[2022-09-21] MEDS: ceFAZolin 3 GM in SODIUM CHLORIDE 0.9% 100 ML IVPB SCH (05:34)
[2022-09-21 06:39] LABS: Basophils % (A) 0 %; Eosinophils # (A) 0.1 k/uL (0-0.7); Eosinophils % (A) 1 %; HCT 29.6 % (34.0-46.0); Lymphocytes # (A) 1.4 k/uL (1.0-4.8); Lymphocytes % (A) 15 %; MCH 29.1 pg (25.0-35.0); MCHC 32.8 g/dL (31.0-37.0); Mean Platelet Volume 8.6; Monocytes # (A) 0.6 k/uL (0-1.0); Monocytes % (A) 6 %; Neutrophils % (A) 76 %; Platelet Count 227 k/uL (150-450); RBC 3.33 m/uL (3.80-5.40); RDW 14.5 % (11.5-15.5); WBC 9.2 k/uL (3.8-10.6)
--- NOTE | 2022-09-21 06:44 | P.PNOBGPC ---
Subjective - Subjective Patient reports: Reports appetite normal, Reports voiding normally, Reports pain well controlled, Reports ambulating normally : doing well Objective - Vital Signs Latest vital signs: Vital Signs Temp Pulse Resp BP Pulse Ox 09/21/22 04:00 98.6 F 104 H 16 112/74 96 09/21/22 00:00 98.2 F 102 H 16 109/72 97 09/20/22 20:00 98.2 F 92 16 112/75 96 09/20/22 15:30 97.3 F L 98 18 126/66 96 09/20/22 14:30 97.1 F L 87 18 132/79 97 09/20/22 14:00 97.0 F L 89 18 143/83 98 09/20/22 13:30 96.9 F L 85 18 143/81 98 09/20/22 13:15 97.1 F L 83 18 143/67 97 09/20/22 13:00 96.8 F L 96 18 144/80 100 09/20/22 12:49 100 09/20/22 12:45 97.3 F L 105 H 18 148/109 100 09/20/22 12:30 97.7 F 99 18 148/109 100 Intake and Output 09/20/22 09/20/22 09/21/22 14:59 22:59 06:59 Output Total 532 750 850 Balance -532 -750 -850 Output: Urine 750 850 Uretheral (Randall) 250 Output, Quantitative 532 Blood Loss Other: Weight 159.211 kg - Exam Lungs: bilateral: normal Chest: Normal S1, Normal S2 Extremities: Present: normal Abdomen: Present: normal appearance, soft. Absent: distention, tenderness Incision: Present: normal, dry, intact Uterus: Present: normal, firm Assessment and Plan Assessment: Post operative day #1. Patient is resting without new complaints. Vital signs are stable she's afebrile. Uterus is firm, nontender and her incision is intact and dry. CBC is pending at time of this dictation. Patient's baby was transf erred to a tertiary facility due to continued episodes of arrhythmias. Plan today is to advance her diet, encourage ambulation, check a CBC, and continue routine postoperative care. I did advise the patient to stay today although her baby is transferred to be continued monitored discharge home tomorrow. (1) 37 or more weeks gestation of Current Visit: Yes Status: Acute Code(s): [id number] - SNOMED Code(s): 64666787 (2) bradycardia Current Visit: Yes Status: Acute Code(s): ZAI1816 - SNOMED Code(s): 903425951 (3) Gestational diabetes Current Visit: Yes Status: Acute Code(s): O24.419 - GESTATIONAL DIABETES MELLITUS IN , UNSP CONTROL SNOMED Code(s): 79875807
[2022-09-21 07:01] LABS: HGB 9.7 gm/dL (11.4-16.0)
[2022-09-21] MEDS: SIMETHICONE 80 MG CHEWABLE PO PRN (19:35)
[2022-09-22] MEDS: SIMETHICONE 80 MG CHEWABLE PO PRN (05:11)
[2022-09-22 05:47] LABS: Basophils % (A) 0 %; Eosinophils # (A) 0.1 k/uL (0-0.7); Eosinophils % (A) 1 %; HCT 31.4 % (34.0-46.0); Lymphocytes # (A) 1.7 k/uL (1.0-4.8); Lymphocytes % (A) 20 %; MCH 28.8 pg (25.0-35.0); MCHC 31.9 g/dL (31.0-37.0); MCV 90.1 fL (80.0-100.0); Mean Platelet Volume 8.2; Monocytes # (A) 0.5 k/uL (0-1.0); Monocytes % (A) 6 %; Neutrophils # (A) 6.1 k/uL (1.3-7.7); Neutrophils % (A) 72 %; Platelet Count 268 k/uL (150-450); RBC 3.49 m/uL (3.80-5.40); RDW 14.6 % (11.5-15.5); WBC 8.5 k/uL (3.8-10.6)
[2022-09-22] MEDS: IBUPROFEN 600 MG TAB PO SCH (06:44)
--- NOTE | 2022-09-22 06:48 | P.DS ---
Providers Date of admission: 09/20/22 11:45 Expected date of discharge: 09/22/22 Attending physician: Lu Teran Primary care physician: Stated None Hospital Course: This is a 22-year-old female 1 para 0 at 37-4/7 weeks who presented for primary low transverse section secondary to bradycardia. Please see history and physical for details of patient's admission. She underwent in emergency I low transverse section on 09/20/2022 and delivered a viable female with scores of 8 at 1 minute and 9 at 5 minutes and infant weight of 8 lbs. 3 oz. Her postoperative and courses have been uncomplicated. She is ambulating. Pain is been fairly well-controlled with ibuprofen and oxycodone. She is trying to pump her breast milk. She is passing flatus and bowel movement. Vital signs are stable. Abdomen is soft with positive bowel sounds 4. Incision is clean dry and intact with santi in place. Extremities show negative Homans. Impression is status post primary low transverse section postoperative day #2. Plan is to discharge home today. Routine postoperative and instructions are given. Santi will be removed and Steri-Strips placed prior to discharge. She is advised to follow up with Dr. Teran in the office in approximately one week for a postoperative check and in 6 weeks for check. She will be given a prescription for ibuprofen and a few oxycodone. She has been counseled regarding opioid use and has signed a consent form. She is advised to call the office if she has any further questions or concerns prior to her appointment time. She will also be given a prescription for a breast pump. Procedures: Primary low transverse section on 09/20/2022 Patient Condition at Discharge: Stable Plan - Discharge Summary New Discharge Prescriptions: New Ibuprofen [Motrin] 600 mg PO Q6H #60 tab oxyCODONE HCL [OxyIR] 5 mg PO Q4HR PRN #18 tab PRN Reason: Pain Acetaminophen Tab [Tylenol] 1,000 mg PO Q6H tab Continue Vit No.179/Iron/Folic [ Tablet] 2 tab PO DAILY No Action Insulin Glargine,Hum.rec.anlog [Lantus Solostar Pen] 10 units SQ HS Discharge Medication List Vit No.179/Iron/Folic [ Tablet] 2 tab PO DAILY 02/17/22 [History] Insulin Glargine,Hum.rec.anlog [Lantus Solostar Pen] 10 units SQ HS 09/20/22 [History] Acetaminophen Tab [Tylenol] 1,000 mg PO Q6H tab 09/22/22 [Rx] Ibuprofen [Motrin] 600 mg PO Q6H #60 tab 09/22/22 [Rx] oxyCODONE HCL [OxyIR] 5 mg PO Q4HR PRN #18 tab 09/22/22 [Rx] Follow up Appointment(s)/Referral(s): Lu Teran DO [Doctor of Osteopathic Medicine] - 11/01/22 11:15 am (Post Op appointment 09-28-2022 at 1:30) Activity/Diet/Wound Care/Special Instructions: Instructions 1. Do not begin any exercise program for 3 weeks. 2. Do not resume sexual relations for 3 weeks or longer if uncomfortable. 3. You may take tub baths or showers at any time. 4. You may use tampons if desired after 3 weeks. 5. Keep the area of episiotomy (stitches) clean and dry. 6. If you are not nursing, wear a good fitting, supportive bra during the day and limit fluid intake for at least 1 week to prevent breast engorgement. 7. Call the office, [phone], within the next week to make appointment for your 6 week checkup if it has not already been made. 8. Report any of the following occurrences to the doctor promptly: a. Heavy, excessive bleeding b. Chills, fever c. Burning or frequency of urination d. Pain or redness and breasts if nursing e. Increasing pain or swelling in episiotomy (stitches). In addition to the above instructions, the following additional should be followed: 1. No heavy lifting or straining (exercising) until after 6 week checkup. 2. Keep abdominal incision clean and dry: You may wear a dressing if more comfortable. 3. Make office appointment for 10 days after going home or as instructed by her doctor. Discharge Disposition: HOME SELF-CARE
[2022-09-22 07:55] VITALS: BP 126/83; PULSE 106; RESP 20; TEMP 98.1
[2022-09-22] MEDS: SENNOSIDES-DOCUSATE SODIUM 1 EACH TAB PO SCH (08:05)
== END 2022-09-22 08:29 | disposition home or self-care (01) | DRG 786 ==
LOC: FBPOP 11:33 → 4FBP 11:45
PROVIDERS: ADMIT Obstetrics & Gynecology; ATTEND Obstetrics & Gynecology
PROC: 10D00Z1 Extraction of Products of Conception, Low, Open Approach (ICD-10-PCS; 2022-09-20)
PROC: 4A0HXCZ Measurement of Products of Conception, Cardiac Rate, External Approach (ICD-10-PCS; principal; 2022-09-20 11:49)
DX: O76 Abnormality in fetal heart rate and rhythm complicating labor and delivery (principal); O99.42 Diseases of the circulatory system complicating childbirth; O24.424 Gestational diabetes mellitus in childbirth, insulin controlled; F32.A Depression, unspecified; F41.9 Anxiety disorder, unspecified; O99.344 Other mental disorders complicating childbirth; O99.334 Smoking (tobacco) complicating childbirth; F17.290 Nicotine dependence, other tobacco product, uncomplicated; I45.9 Conduction disorder, unspecified; Z37.0 Single live birth; Z3A.37 37 weeks gestation of pregnancy; Z91.040 Latex allergy status
CPT/HCPCS: 83036; 85025; 86850; 86900; 86901; 88307